=== PATIENT | female | born 1955 | race Caucasian/White ===

== ENCOUNTER 2022-10-12 14:26 | Inpatient (IN) | payer MEDICARE ==
[~2022-10-12] VITALS: Ht 170.2 cm; Wt 63.6 kg
[2022-10-12] MEDS ORDERED: diltiazem 5mg/ml 5ml inj. IV ONE (14:35)
--- NOTE | 2022-10-12 14:49 | NUR ---
PT IS AO4 DENIES CP AT THIS TIME. CLIAMS SLIGHT DIZZINESS. SKIN W/D/I PINK. SPEAKS CLEARLY AND IN COMPLETE SENTENCES. PATENT 18G IV STARTED IN THE FIELD.
[2022-10-12] MEDS ORDERED: diltiazem-D5W 125mg/125ml 125 ML IV SCH (14:50)
[2022-10-12] MEDS ORDERED: diltiazem-NS 100mg/100ml 100 ML IV SCH (14:55)
[2022-10-12 15:16] LABS: BASOPHILS % (AUTO) 0.7 % (0-1); EOSINOPHILS % (AUTO) 0.4 % (0-6); HEMATOCRIT 42.8 % (35.0-45.0); HEMOGLOBIN 13.9 g/dl (12.0-16.0); LYMPHOCYTES # (AUTO) 1.6 X10'3 (1.1-4.8); LYMPHOCYTES % (AUTO) 21.8 % (21-51); MEAN CORPUSCULAR HEMOGLOBIN 28.6 PG (27.0-31.0); MEAN CORPUSCULAR HGB CONC 32.5 g/dL (33.0-36.5); MEAN CORPUSCULAR VOLUME 87.8 FL (78-98); MEAN PLATELET VOLUME 9.4 FL (7.4-10.4); MONOCYTES # (AUTO) 0.7 X10'3 (0-0.9); NEUTROPHILS # (AUTO) 4.9 X10'3 (1.8-7.7); NEUTROPHILS % (AUTO) 68.1 % (42-75); PLATELET COUNT 244 X10'3 (140-440); RED BLOOD COUNT 4.87 X10'6 (4.20-5.60); RED CELL DISTRIBUTION WIDTH 13.7 % (11.5-14.5); WHITE BLOOD COUNT 7.2 X10'3 (4.5-11.0)
[2022-10-12 15:25] LABS: APTT 27 SECONDS (22-32); D-DIMER 0.35 MG/L FEU (0-0.50)
[2022-10-12 15:37] LABS: ALANINE AMINOTRANSFERASE 21 U/L (12-78); ALBUMIN 3.9 G/DL (3.4-5.0); ALKALINE PHOSPHATASE 73 IU/L (46-116); ANION GAP 9 (8-16); ASPARTATE AMINO TRANSFERASE 23 U/L (10-37); BILIRUBIN,TOTAL 0.4 MG/DL (0.1-1.0); BLOOD UREA NITROGEN 13 MG/DL (7-18); CHLORIDE 103 MMOL/L (99-107); CREATININE 1.08 MG/DL (0.40-0.90); GLUCOSE 161 MG/DL (70-104); LIPASE 114 U/L (73-393); MAGNESIUM 2.1 MG/DL (1.5-2.4); POTASSIUM 3.6 MMOL/L (3.5-5.1); SODIUM 137 MMOL/L (135-145); TOTAL CARBON DIOXIDE 24.6 MMOL/L (24-32); TOTAL PROTEIN 7.8 G/DL (6.4-8.2); eGFR 50 ML/MIN
[2022-10-12] MEDS ORDERED: enoxaparin 100mg/ml syringe SUBCUT ONE (15:50)
--- NOTE | 2022-10-12 15:55 | NUR ---
PER DR KEMP VERBAL ORDER CARDIZEM INCREASE BY 5MG/HR TOTAL OF 15MG/HR
[2022-10-12] MEDS ORDERED: acetaminophen 325mg tablet PO PRN ×2 (16:05)
[2022-10-12] MEDS ORDERED: magnesium 4gm in 100ml NS 100 ML IV PRN (16:05)
[2022-10-12] MEDS ORDERED: morphine 2 MG/ML inj. syringe IV PRN ×2 (16:05)
[2022-10-12] MEDS ORDERED: potassium Cl 40MEQ/1/2NS 520ml 520 ML IV PRN (16:05)
[2022-10-12] MEDS ORDERED: HYDROcodone/acetaminophen 10/325mg tab PO PRN (16:05)
[2022-10-12] MEDS ORDERED: diphenhydrAMINE 50 mg/ml inj IV PRN (16:05)
[2022-10-12] MEDS ORDERED: HYDROcodone/acetaminophen 5mg/325mg tablet PO PRN (16:05)
[2022-10-12] MEDS ORDERED: normal saline 1000ml 1,000 ML IV SCH (16:05)
[2022-10-12] MEDS ORDERED: potassium Cl 20 mEq SR tablet PO PRN ×2 (16:05)
[2022-10-12] MEDS ORDERED: diphenhydrAMINE 25mg capsule PO PRN (16:05)
[2022-10-12] MEDS ORDERED: magnesium Cl slow-release 64mg tablet PO PRN (16:05)
[2022-10-12] MEDS ORDERED: ondansetron/PF 4mg/2ml inj IV PRN (16:05)
[2022-10-12] MEDS ORDERED: ondansetron 4mg rapidly disintigrating tab PO PRN (16:05)
[2022-10-12] MEDS ORDERED: mag hydrox/Alum hydrox/simeth 30ml oral suspension PO PRN (16:05)
[2022-10-12] MEDS ORDERED: magnesium hydroxide 30ml (MOM) UD suspension PO PRN (16:05)
--- NOTE | 2022-10-12 16:05 | NUR ---
PER DR KEMP VERBAL ORDER INCREASE CARDIZEM DRIP RATE BY 5MG TO 20MG/HR.
[2022-10-12] MEDS ORDERED: digoxin 250mcg/ml 2ml ampule IV ONE (16:10)
--- NOTE | 2022-10-12 16:40 | NUR ---
PER DR KEMP VERBAL ORDER TURN DOWN CARDIZEM DRIP BY 5MG AFTER DIGIXOIN.
[2022-10-12] MEDS ORDERED: diltiazem SR 60mg capsule (twice daily) PO STA (17:38)
--- NOTE | 2022-10-12 18:26 | NUR ---
REPORT TO ARIA NUÑEZ FOR CONTINUATION OF CARE.
[2022-10-12 18:33] LABS: PHOSPHORUS 3.6 MG/DL (2.3-4.5)
--- NOTE | 2022-10-12 19:29 | NUR ---
Notified Dr Rosenberg of trop 288, no new orders at this time.
[2022-10-12] MEDS: docusate sod 100mg capsule PO SCH (20:00)
[2022-10-12] MEDS: K and/or MAG REPLACEMENT MC SCH (20:00)
[2022-10-12] MEDS ORDERED: warfarin 5mg tablet PO ONE ×2 (21:00)
[2022-10-12] MEDS ORDERED: warfarin 5mg tablet PO SCH ×2 (21:00)
[2022-10-12] MEDS: enoxaparin 60mg/0.6ml syringe SUBCUT SCH (21:10)
--- NOTE | 2022-10-12 22:30 | NUR ---
Patient in room PCU 3024. I have received report from Wilner HILARIO RN and had the opportunity to ask questions and assume patient care.
[2022-10-12 23:00] VITALS: BP 128/62
--- NOTE | 2022-10-12 23:00 | NUR ---
PT ARRIVED ON THE UNIT, PT IN NO DISTRESS, SITUATED IN BED
[2022-10-13] MEDS ORDERED: diltiazem-NS 100mg/100ml 100 ML IV SCH ×2
[2022-10-13 02:00] VITALS: BP 125/64
[2022-10-13] MEDS ORDERED: NO HOME MEDS (05:57)
[2022-10-13 07:00] VITALS: BP 122/60
--- NOTE | 2022-10-13 07:05 | NUR ---
Problems reprioritized. Patient report given, questions answered & plan of care reviewed with Jolene NUÑEZ.
[2022-10-13 07:09] LABS: BASOPHILS # (AUTO) 0.1 X10'3 (0-0.2); BASOPHILS % (AUTO) 1.3 % (0-1); EOSINOPHILS # (AUTO) 0.1 X10'3 (0-0.9); EOSINOPHILS % (AUTO) 1.7 % (0-6); HEMATOCRIT 40.6 % (35.0-45.0); HEMOGLOBIN 13.5 g/dl (12.0-16.0); LYMPHOCYTES # (AUTO) 1.3 X10'3 (1.1-4.8); MEAN CORPUSCULAR HGB CONC 33.3 g/dL (33.0-36.5); MEAN PLATELET VOLUME 8.9 FL (7.4-10.4); MONOCYTES # (AUTO) 0.5 X10'3 (0-0.9); MONOCYTES % (AUTO) 10.2 % (2-12); NEUTROPHILS # (AUTO) 3.1 X10'3 (1.8-7.7); NEUTROPHILS % (AUTO) 60.8 % (42-75); PLATELET COUNT 223 X10'3 (140-440); RED BLOOD COUNT 4.67 X10'6 (4.20-5.60); RED CELL DISTRIBUTION WIDTH 13.7 % (11.5-14.5); WHITE BLOOD COUNT 5.1 X10'3 (4.5-11.0)
[2022-10-13 07:12] LABS: APTT 32 SECONDS (22-32)
[2022-10-13 07:24] LABS: ALANINE AMINOTRANSFERASE 17 U/L (12-78); ALBUMIN 3.6 G/DL (3.4-5.0); ALBUMIN/GLOBULIN RATIO 0.9 (1.1-1.5); ALKALINE PHOSPHATASE 65 IU/L (46-116); ANION GAP 9 (8-16); ASPARTATE AMINO TRANSFERASE 20 U/L (10-37); BILIRUBIN,TOTAL 0.5 MG/DL (0.1-1.0); BLOOD UREA NITROGEN 10 MG/DL (7-18); BUN/CREATININE RATIO 13.9 (6.6-38.0); CALCIUM 8.6 MG/DL (8.5-10.1); CHLORIDE 105 MMOL/L (99-107); CREATININE 0.72 MG/DL (0.40-0.90); GLUCOSE 96 MG/DL (70-104); MAGNESIUM 2.3 MG/DL (1.5-2.4); POTASSIUM 3.8 MMOL/L (3.5-5.1); SODIUM 141 MMOL/L (135-145); TOTAL CARBON DIOXIDE 26.9 MMOL/L (24-32); TOTAL PROTEIN 7.4 G/DL (6.4-8.2); eGFR 80 ML/MIN
[2022-10-13] MEDS: docusate sod 100mg capsule PO SCH (07:56)
[2022-10-13] MEDS: enoxaparin 60mg/0.6ml syringe SUBCUT SCH (07:56)
--- NOTE | 2022-10-13 07:57 | NUR ---
0730 -- RN contacted Dr. Espinal. Pt on both Coumadin and Lovenox. RN held Lovenox. RN also notified provider that pt does NOT have scheduled PO Diltiazem on emar despite Diltiazem being turned off prior to pt tx to PCU from ED. No new orders. RN also inquired about elevated Trop1. 0745 -- Pt and family updated extensively at bedside.
[2022-10-13] MEDS: K and/or MAG REPLACEMENT MC SCH (08:00)
[2022-10-13] MEDS ORDERED: diltiazem 30mg tablet PO ONE (09:30)
--- NOTE | 2022-10-13 10:31 | NUR ---
Rn spoke to Dr. Kylie RN to give AM lovenox (RN admin under "non scheduled" admit) Lovenox to be given w/ coumadin to "bridge" INR. RN also mentioned pt last trop1 was elevated at 1800 last night. Pt denies chest pain. Provider instructed RN to order repeat just in case.
--- NOTE | 2022-10-13 10:50 | NUR ---
lovenox 60mg administered 1x per order.
[2022-10-13 11:00] VITALS: BP 145/62
[2022-10-13] MEDS ORDERED: DILT30TA2 PO (11:40)
[2022-10-13] MEDS ORDERED: ASPI81TA30 PO (11:40)
--- NOTE | 2022-10-13 13:53 | NUR ---
Pt d/c home approximately 1230. Pt left on foot to wait for her friend in the lobby. IV d/c prior to discharge. Pt vss. AOx4. Discharge education done accordingly.
[2022-10-13] MEDS ORDERED: diltiazem 30mg tablet PO SCH (14:00)
== END 2022-10-13 12:52 | disposition home or self-care (01) | DRG 280 ==
LOC: ER 14:26 → ED HOLD 16:17 → PCU 3S 22:59
PROVIDERS: ADMIT Family Medicine; ATTEND Family Medicine
DX: I48.0 Paroxysmal atrial fibrillation (principal); I21.A1 Myocardial infarction type 2; N17.0 Acute kidney failure with tubular necrosis; F17.220 Nicotine dependence, chewing tobacco, uncomplicated; I10 Essential (primary) hypertension
CPT/HCPCS: 36415; 71045; 80053; 83690; 83735; 83880; 84100; 84443; 84484; 85025; 85379; 85610; 85730; 87081; 93306; 99285; A6449; G0378; J1160; J1650; J3490; J7030

== ENCOUNTER 2024-08-25 11:07 | Outpatient (CLI) | payer MEDICARE ==
[~2024-08-25 11:07] MED LIST: DILT30TA2 PO
== END 2024-08-25 23:59 | disposition home or self-care (01) ==
LOC: MRI02 11:07
PROVIDERS: ATTEND Pediatrics Sports Medicine
DX: S73.191A Other sprain of right hip, initial encounter (principal); M17.0 Bilateral primary osteoarthritis of knee; M25.451 Effusion, right hip; M24.051 Loose body in right hip; M70.61 Trochanteric bursitis, right hip; M51.369 Other intervertebral disc degeneration, lumbar region without mention of lumbar back pain or lower extremity pain; M46.1 Sacroiliitis, not elsewhere classified; M25.551 Pain in right hip; K57.90 Diverticulosis of intestine, part unspecified, without perforation or abscess without bleeding; X58.XXXA Exposure to other specified factors, initial encounter; Y92.89 Other specified places as the place of occurrence of the external cause; Y93.89 Activity, other specified; Y99.8 Other external cause status
CPT/HCPCS: 73721

== ENCOUNTER 2024-12-30 10:01 | Emergency (ER) | payer MEDICARE ==
[~2024-12-30] VITALS: Ht 167.6 cm; Wt 61.4 kg
[2024-12-30 10:03] VITALS: TEMP 98.1
[2024-12-30 10:22] LABS: BASOPHILS % (AUTO) 0.4 % (0-1); EOSINOPHILS % (AUTO) 0.6 % (0-6); HEMATOCRIT 41.5 % (35.0-45.0); HEMOGLOBIN 13.2 g/dl (12.0-16.0); LYMPHOCYTES # (AUTO) 1.4 X10'3 (1.1-4.8); LYMPHOCYTES % (AUTO) 21.2 % (21-51); MEAN CORPUSCULAR HGB CONC 31.9 g/dL (33.0-36.5); MEAN CORPUSCULAR VOLUME 87.9 FL (78-98); MEAN PLATELET VOLUME 8.3 FL (7.4-10.4); MONOCYTES # (AUTO) 0.5 X10'3 (0-0.9); MONOCYTES % (AUTO) 7.8 % (2-12); NEUTROPHILS # (AUTO) 4.6 X10'3 (1.8-7.7); PLATELET COUNT 293 X10'3 (140-440); RED BLOOD COUNT 4.72 X10'6 (4.20-5.60); RED CELL DISTRIBUTION WIDTH 15.7 % (11.5-14.5); WHITE BLOOD COUNT 6.6 X10'3 (4.5-11.0)
[2024-12-30 10:41] LABS: ALANINE AMINOTRANSFERASE 17 U/L (12-78); ALBUMIN/GLOBULIN RATIO 1.1 (1.1-1.5); ALKALINE PHOSPHATASE 87 IU/L (46-116); ANION GAP 9 (8-16); ASPARTATE AMINO TRANSFERASE 15 U/L (10-37); BILIRUBIN,TOTAL 0.4 MG/DL (0.1-1.0); BLOOD UREA NITROGEN 11 MG/DL (7-18); BUN/CREATININE RATIO 17.2 (10.0-20.0); CALCIUM 9.1 MG/DL (8.5-10.1); CHLORIDE 104 MMOL/L (99-107); CREATININE 0.64 MG/DL (0.40-0.90); GLUCOSE 139 MG/DL (70-104); POTASSIUM 3.6 MMOL/L (3.5-5.1); SODIUM 141 MMOL/L (135-145); TOTAL CARBON DIOXIDE 28.1 MMOL/L (24-32); TOTAL PROTEIN 7.8 G/DL (6.4-8.2); eCRCL 75 ML/MIN; eGFR > 90 ML/MIN
[2024-12-30 10:51] LABS: PRO BRAIN NATRIURETIC PEPTIDE 81 PG/ML (0-125)
[2024-12-30 13:39] VITALS: BP 166/78; PULSE 69; RESP 15; O2SAT 98
== END 2024-12-30 13:40 | disposition home or self-care (01) ==
LOC: ER 10:02
DX: R07.89 Other chest pain (principal); I48.91 Unspecified atrial fibrillation; Z79.899 Other long term (current) drug therapy
CPT/HCPCS: 36415; 71045; 80053; 83880; 84484; 85025; 93005; 99285

== ENCOUNTER 2025-08-11 13:01 | Emergency (ER) | payer MEDICARE ==
[~2025-08-11] VITALS: Ht 167.6 cm; Wt 66.6 kg
[2025-08-11 13:02] VITALS: RESP 18; TEMP 97
--- NOTE | 2025-08-11 13:26 | Physician Documentation ---
History of Present Illness ~ Chief Complaint: Head Pain Stated Complaint: HIT HEAD Time Seen by MD: 13:13 OK to notify your PCP?: No Mode of Arrival: Ambulatory HPI 69-year-old female presents to the ED with a complaint of head injury this morning while entering her car she struck her head on the frame of the vehicle. She states she did not lose consciousness she does not have any nausea light sensitivity or any focal deficits. She is on blood thinners and she is concerned about the potential ramifications of a brain bleed secondary to head injury. Day of Onset: Aug 11, 2025 Tetanus within 5 years?: No Medication Reconciliation Allergies: Coded Allergies: No Known Allergies (Unverified , 08/11/25) Scheduled Diltiazem HCl (Diltiazem HCl), 30 MG PO Q6H Review of Systems All Other Systems at this time: Reviewed and Negative ROS As stated above in the HPI, otherwise all systems are reviewed and negative. Physical Exam Vital Signs: Temperature: 97.0, Source: Temporal, Heart Rate: 82, Respiratory Rate: 18, BP: 187/82, Pulse Oximetry: 97, Weight: 66.600 Oxygen Flow Rate: 0 Physical Exam General: Alert, no apparent distress. Head: mild erythema forhaead Respiratory: Lungs clear, no respiratory distress. Cardiovascular: Regular rate and rhythm, no murmurs. Gastrointestinal: Soft, nontender, nondistended. Bowels sounds present. Neurologic: Oriented x4. Psychiatric: Normal mood and affect. Skin: Normal color, warm and dry. No edema, no ecchymosis. Progress Results/Orders Results/Orders Orders - MAIKEL MELTON [employer] Ct Head (08/11/25 13:15) Completed Orders - MAIKEL MELTON [employer] Ct Head (08/11/25 13:15) Vital Signs 08/11/25 08/11/25 08/11/25 08/11/25 13:02 13:13 13:17 14:20 Temp 97.0 Pulse 82 72 55 Resp 18 B/P (MAP) 187/82 192/82 (118) 144/68 Pulse Ox 97 95 99 O2 Flow Rate 0 Medical Decision Making Additional information obtaine: old records Findings CT findings indicates that there was no evidence of intracranial abnormality or bleeds. No further evaluation is necessary at this time. Spent time reassuring the patient of these findings Differential Dx:Considerations: Include: Closed head injury, Cervical spine injury, Skull facture, Fracture, Abrasion, Contusion, Foreign body, Laceration, Intoxication-alcohol, Intoxication-other drug, Substance abuse disorder, Personality disorder, Non-accidental trauma, Other Departure Disposition: 01 HOME / SELF CARE / HOMELESS Impression: Primary Impression: Headache Additional Impression: Superficial bruising Condition: Stable Discharge Instructions: Head Injuries, Adult Referrals: NO PRIMARY CARE PROVIDER (PCP) Signature Scribe Signature: gf Attestation: Scribed for Maikel Melton Building Specialist by Maikel Camacho NP . 08/13/25 21:05 MAIKEL MELTON NP Aug 11, 2025 13:26
--- NOTE | 2025-08-11 13:59 | RADIOLOGY REPORT ---
CT CT HEAD Indication: head strike thinners EXAM DATE: 08/11/2025 01:13 PM COMPARISON: None TECHNIQUE: CT of the head without intravenous contrast. RADIATION DOSE: CTDIvol: 53 mGy, DLP: 901 mGy*cm FINDINGS: There is no intracranial hemorrhage. There is no extra-axial fluid, mass, mass effect or midline shift. The ventricles are midline and normal in size. Basilar cisterns are patent. There are mild periventricular and subcortical white matter ischemic changes. The paranasal sinuses and mastoids are well-pneumatized. Imaged portion of the orbits are unremarkable. IMPRESSION: No intracranial hemorrhage or mass effect. Mild chronic microvascular ischemic changes.
[2025-08-11 14:20] VITALS: BP 144/68; PULSE 55; O2SAT 99
== END 2025-08-11 14:22 | disposition home or self-care (01) ==
LOC: ER 13:01
DX: S00.83XA Contusion of other part of head, initial encounter (principal); Z79.01 Long term (current) use of anticoagulants; Z79.899 Other long term (current) drug therapy; W22.8XXA Striking against or struck by other objects, initial encounter; Y93.89 Activity, other specified; Y92.89 Other specified places as the place of occurrence of the external cause; Y99.8 Other external cause status
CPT/HCPCS: 70450; 99284